=== PATIENT | female | born 1970 | race Caucasian/White ===

== ENCOUNTER → 2025-01-30 11:33 | Outpatient (REF) | payer OTHER, SELFPAY ==
[2025-01-30 12:23] LABS: Hematocrit 37.7 % (37.0-47.0); Hemoglobin 13.5 g/dL (12.0-16.0); Mean Corp Hgb Conc. 35.8 g/dL (33.0-37.0); Mean Corpuscular Volume 84.7 fL (81.0-99.0); Nucleated Red Blood Cells % 0 %; Platelet Count 265 10^3/uL (130-400); Red Cell Dist. Width 12.2 % (11.5-14.5)
[2025-01-30 12:28] LABS: Urine Character Clear (Clear)
[2025-01-30 12:39] LABS: Glycohemoglobin (HgbA1c) 5.2 % (4.0-5.6)
[2025-01-30 12:52] LABS: Urine Red Blood Cell 0-2 /HPF (0-2); Urine White Cell 0-2 /HPF (0-5)
[2025-01-30 13:26] LABS: ALT (SGPT) 13 U/L (0-35); AST (SGOT) 19 U/L (14-36); Albumin 4.5 g/dl (3.5-5.0); Alkaline Phosphatase 53 U/L (38-126); Blood Urea Nitrogen 14 mg/dl (7-17); Calcium 9.9 mg/dl (8.4-10.2); Carbon Dioxide 24 mmol/L (22-30); Chloride 107 mmol/L (98-107); Glucose 89 mg/dl (70-99); HDL Cholesterol 51 mg/dl; LDL Cholesterol, Calculated 140 mg/dl; Potassium 4.2 mmol/L (3.5-5.1); Sodium 138 mmol/L (135-145); Total Protein 7.1 g/dl (6.3-8.2); Very Low Density Lipoprotein 10 mg/dl (0-30); eGFR > 60.00
[2025-01-30 13:35] LABS: Vitamin D, 25-OH*** 24.4 ng/mL (30-80)
[2025-01-30 13:48] LABS: TSH 3.01 uIU/ml (0.47-4.68)
[2025-01-30 14:08] LABS: Hepatitis C Antibody Negative (Negative)
== END ==
LOC: REG 11:33
PROVIDERS: ATTENDING PHYSICIAN Nurse Practitioner Primary Care
DX: R73.01 Impaired fasting glucose (principal); E78.00 Pure hypercholesterolemia, unspecified; E03.9 Hypothyroidism, unspecified; Z00.00 Encounter for general adult medical examination without abnormal findings
CPT/HCPCS: 36415; 80053; 80061; 81003; 81015; 82306; 83036; 84439; 84443; 85025; 86803

== ENCOUNTER → 2025-03-13 07:47 | Outpatient (REF) | payer OTHER, SELFPAY | LOC: RAD 07:47 | PROVIDERS: ATTENDING PHYSICIAN Nurse Practitioner Primary Care | DX: F17.210 Nicotine dependence, cigarettes, uncomplicated (principal); R91.1 Solitary pulmonary nodule | CPT/HCPCS: 71260; Q9967 ==